=== PATIENT | male | born 1995 | race Caucasian/White ===

== ENCOUNTER 2025-10-16 14:46 | Emergency (ER) | payer OTHER ==
[~2025-10-16] VITALS: Ht 190.5 cm; Wt 121.6 kg
[2025-10-16] MEDS ORDERED: IBUP-1957 PO (16:41)
[2025-10-16 17:35] VITALS: BP 145/72; TEMP 98.5; O2SAT 99
== END 2025-10-16 17:05 | disposition home or self-care (01) ==
LOC: EDBD 15:24 → ER 15:24
DX: M54.50 Low back pain, unspecified (principal); F41.9 Anxiety disorder, unspecified; F17.200 Nicotine dependence, unspecified, uncomplicated; I10 Essential (primary) hypertension; I49.8 Other specified cardiac arrhythmias
CPT/HCPCS: 71045-TC